=== PATIENT | female | born 1940 | race Caucasian/White ===

== ENCOUNTER 2019-02-18 10:41 | Inpatient (IN) ==
[2019-02-18] MEDS ORDERED: Isovue-370 500 ML BOTTLE IVP ONE (10:44)
--- NOTE | 2019-02-18 11:05 | Emergency Department Note ---
Disposition Clinical Impression: Bilateral pulmonary embolism, Breast mass, right Pulmonary embolism Qualifiers: Pulmonary embolism type: other Chronicity: acute Acute cor pulmonale presence: without acute cor pulmonale Qualified Code(s): I26.99 - Other pulmonary embolism without acute cor pulmonale Disposition: Admitted As Inpatient Condition: Fair Referrals: Kaitlynn Piña DO [Primary Care Provider] - Forms: ED Satisfaction Letter Time of Disposition: 13:46 SOB HPI - General Chief Complaint: ED Shortness of Breath/Dyspnea Stated Complaint: SOB Time Seen by Provider: 02/18/19 10:42 Source: patient, EMS Limitations: no limitations Nursing Notes Reviewed: Yes Vital Signs Reviewed: Yes - History of Present Illness Mrs. Gutiérrez is a 78yo female with a pastmed hx of HTN, Mrs. Gutiérrez is a 78yo female with a past medical hx of HTN and PE-3 years ago not currently on blood thinners presents with exertional shortness of breath since Tuesday. Patient states that she has a pulse ox at home, which has shown increased HR and decrease O2 saturation with ambulation. Patient seen at urgent care this morning, where they performed at EKG and sent her here for concern of PE vs. CHF. Patient reports no chest pain, changes in medications or nausea/vomiting. No recent surgeries, long car rides, exogenous hormones or hx of cancer. Patient does admit to remaining immobile most days as she "doesn't have the energy anymore." - Related Data Home Medications Medication Instructions Recorded Confirmed Celecoxib [Celebrex] 200 mg PO DAILY 02/18/19 02/18/19 Lisinopril/Hydrochlorothiazide 1 each PO BID 02/18/19 02/18/19 [Lisinopril-Hctz 10-12.5 mg Tab] Allergies Allergy/AdvReac Type Severity Reaction Status Date / Time naproxen [From Naprosyn] Allergy Rash Verified 01/02/16 14:46 All systems ED: reviewed and negative except as stated. Review of Systems: As Per HPI Constitutional: Denies: fever, chills Cardiovascular: Reports: dyspnea on exertion. Denies: chest pain, palpitations Respiratory: Reports: dyspnea. Denies: cough, wheezes Gastrointestinal: Reports: diarrhea. Denies: abdominal pain, nausea, vomiting Genitourinary: Denies: urgency, dysuria Musculoskeletal: Denies: back pain Integumentary: Denies: rash Neurological: Denies: headache, weakness, numbness Endocrine: Denies: fatigue Past Medical History - Past Medical History Medical history: Reports: arthritis, hypertension, pulmonary embolus Surgical history: Reports: hip replacement Psychiatric history: Reports: anxiety, panic disorder HEEL STAINER history: Reports: no HEEL STAINER history - Social History Smoking Status: Former smoker Smokeless Tobacco Status: No Alcohol use: Reports: rarely Drug use: Reports: none Physical Exam - General Limitations: no limitations General appearance: alert, in no apparent distress - Head Head exam: atraumatic, normocephalic - Eye Eye exam: Present: PERRL - ENT ENT exam: mucous membranes moist - Neck Neck exam: Present: trachea midline - Respiratory Respiratory exam: Present: normal lung sounds bilaterally. Absent: respiratory distress, wheezes - Cardiovascular Cardiovascular exam: Present: regular rate, normal rhythm - Abdominal Exam Abdominal exam: Present: soft, Non-Tender. Absent: distention, guarding, rebound - Extremities Exam Extremities exam: Present: normal inspection, full ROM. Absent: tenderness, pedal edema - Back Exam Back exam: Present: normal inspection, full ROM. Absent: tenderness - Neurological Exam Neurological exam: Present: alert, oriented X3 - Psychiatric Psychiatric exam: Present: normal affect, normal mood - Skin Skin exam: Present: warm, dry, intact, normal color Course - Consultations Consultation #1: I spoke with Dr. Tucker at 1402, states that as the patient is symptomatic with shortness of breath and bloody breathing requiring 2 L currently at 90 798% oxygen saturation, he does feel the patient is appropriate for admission at this point in time, would like her observed for a total of 24 hours. He will be arranging for outpatient follow-up after this 24 hours observation. He states to go ahead and start Xarelto medication if the patient is agreeable. Dr. Tucker states that he does not need to consult in the hospital as he is a 30 establish ed outpatient follow-up for the patient upon discharge. Time: 14:03 Vital Signs Temperature 98.4 F 02/18/19 10:47 Pulse Rate 91 02/18/19 10:47 Respiratory Rate 14 02/18/19 10:47 Blood Pressure 162/85 02/18/19 10:47 O2 Sat by Pulse Oximetry 97 02/18/19 10:47 Temperature 98.4 F 02/18/19 10:47 Pulse Rate 74 02/18/19 14:13 Respiratory Rate 18 02/18/19 14:13 Blood Pressure 141/71 02/18/19 14:13 O2 Sat by Pulse Oximetry 99 02/18/19 14:13 Oxygen Delivery Oxygen Delivery Nasal Cannula Shortness of Breath/Dyspnea - [facility] Narrative Medical decision making narrative: Patient is a 78-year-old female coming in with shortness of breath and difficulty breathing. Patient with known history of high blood pressure cholesterol and PE in the past, this apparently 3 years ago at that point in time she was on Xarelto regimen since stopped after 6 months of duration of treatment. Patient came in in no acute distress, no tachycardia, she was placed on 2 L nasal cannula secondary to mild hypoxia, she is currently satting at 97- 99% in room air. Patient is quite symptomatic she states with the past few days of significant soreness of breath and difficulty breathing. Sent in by her PCP for concern for PE. She denies any exogenous causes secondary to OCPs, estrogen replacement, leg swelling no history of DVT. CTA was performed as well as laboratory work including CBC, BMP, troponin and BNP. CTA does show bilateral pulmonary embolism without saddle emboli. Patient has no right heart strain on CT. Troponin and BNP are within normal limits. Vital signs otherwise been stable. Patient was placed on heparin treatment. I did speak with the on-call [facility] PHYSICIAN, Dr. Tucker requested the patient be admitted for symptomatic pulmonary embolism, if patient was a symptomatically, the patient would be a candidate for discharge on into coagulation medication, however as the patient is having symptoms at this time, he does request the patient be admitted for 24 hour observation and being placed on Xarelto. He will be seeing the patient outpatient, he has established this for her after 24 hour observation. Patient will be admitted to the hospitalist service. - Differential Diagnosis Likely: acute exacerbation of chronic obstructive airways disease, congestive heart failure, pneumonia, pulmonary embolism, arrhythmia - Medical Records Medical records reviewed: Yes I reviewed the patient's medical records. - Lab Data Lab results reviewed: Yes I reviewed the patient's lab results. Result diagrams: 02/18/19 13:30 02/18/19 11:18 Lab Results 02/18/19 02/18/19 02/18/19 Range/Units 11:01 11:18 11:18 WBC 8.2 (4.3-11.1) K/mcL RBC 4.92 (3.82-4.97) M/mcL Hgb 14.7 (11.5-15.4) g/dL Hct 45.8 H (35.3-44.9) % MCV 93.1 (83.0-100.0) fL MCH 29.9 (28.0-33.3) pg MCHC 32.1 (31.6-35.5) g/dL RDW 14.5 (11.5-14.5) % Plt Count 258 (140-400) K/mcL MPV 9.4 (9.4-12.4) fL Immature Gran % 0.6 (0-4) % Seg Neutrophils % 75.1 % Lymphocytes % 15.8 % Monocytes % 6.7 % Eosinophils % 1.2 % Basophils % 0.6 % Neutrophils # 6.2 (1.6-8.9) K/mcL Lymphocytes # 1.3 (0.6-4.6) K/mcL Monocytes # 0.6 (0.0-1.3) K/mcL Eosinophils # 0.1 (0.0-0.6) K/mcL Basophils # 0.1 (0.0-0.2) K/mcL PT 12.7 H (9.4-12.1) Seconds INR 1.1 APTT 38.5 H (26.0-36.0) Seconds Heparin Anti-Xa, Unfract (0.30-0.70) IU/mL Sodium (136-145) mEq/L Potassium (3.5-5.1) mEq/L Chloride (98-107) mEq/L Carbon Dioxide (23-29) mEq/L BUN (8-23) mg/dL Creatinine (0.60-1.20) mg/dL Est GFR ( Amer) (> 60) Est GFR (Non-Af Amer) (> 60) BUN/Creatinine Ratio (6-26) Glucose (70-105) mg/dL Calculated Osmolality (280-300) Calcium (8.6-10.3) mg/dL Troponin I (< 0.04) ng/mL B-Natriuretic Peptide (Less than 100) pg/mL Urine Color Yellow (Yellow) Urine Clarity Clear (Clear) Urine pH 6.5 (5.0-8.0) pH Units Ur Specific [place] 1.010 (1.010-1.025) Urine Protein Negative (Neg-Trace) mg/dL Urine Glucose (UA) Normal (Normal) mg/dL Urine Ketones Negative (Negative) mg/dL Urine Blood Negative (Negative) Urine Nitrite Negative (Negative) Urine Bilirubin Negative (Negative) Urine Urobilinogen Normal (Normal) mg/dL Ur Leukocyte Esterase Small H (Negative) Urine Microscopic RBC 0-3 (0-3) per hpf Urine Microscopic WBC 5-15 H (0-3) per hpf Ur Squamous Epith Cells Moderate H (None-Few) per lpf Urine Bacteria None Seen (None-Few) per hpf Hyaline Casts None Seen (None-Few) per lpf Ur Culture Indicated? YES A (NO) 02/18/19 02/18/19 02/18/19 Range/Units 11:18 11:18 13:30 WBC 8.3 (4.3-11.1) K/mcL RBC 4.66 (3.82-4.97) M/mcL Hgb 13.8 (11.5-15.4) g/dL Hct 41.9 (35.3-44.9) % MCV 89.9 (83.0-100.0) fL MCH 29.6 (28.0-33.3) pg MCHC 32.9 (31.6-35.5) g/dL RDW 14.6 H (11.5-14.5) % Plt Count 254 (140-400) K/mcL MPV 9.3 L (9.4-12.4) fL Immature Gran % (0-4) % Seg Neutrophils % % Lymphocytes % % Monocytes % % Eosinophils % % Basophils % % Neutrophils # (1.6-8.9) K/mcL Lymphocytes # (0.6-4.6) K/mcL Monocytes # (0.0-1.3) K/mcL Eosinophils # (0.0-0.6) K/mcL Basophils # (0.0-0.2) K/mcL PT (9.4-12.1) Seconds INR APTT (26.0-36.0) Seconds Heparin Anti-Xa, Unfract (0.30-0.70) IU/mL Sodium 143 (136-145) mEq/L Potassium 4.2 (3.5-5.1) mEq/L Chloride 105 (98-107) mEq/L Carbon Dioxide 27 (23-29) mEq/L BUN 17 (8-23) mg/dL Creatinine 0.99 (0.60-1.20) mg/dL Est GFR ( Amer) > 60 (> 60) Est GFR (Non-Af Amer) 55 L (> 60) BUN/Creatinine Ratio 17 (6-26) Glucose 125 H (70-105) mg/dL Calculated Osmolality 299 (280-300) Calcium 10.1 (8.6-10.3) mg/dL Troponin I < 0.03 (< 0.04) ng/mL B-Natriuretic Peptide 62 (Less than 100) pg/mL Urine Color (Yellow) Urine Clarity (Clear) Urine pH (5.0-8.0) pH Units Ur Specific [place] (1.010-1.025) Urine Protein (Neg-Trace) mg/dL Urine Glucose (UA) (Normal) mg/dL Urine Ketones (Negative) mg/dL Urine Blood (Negative) Urine Nitrite (Negative) Urine Bilirubin (Negative) Urine Urobilinogen (Normal) mg/dL Ur Leukocyte Esterase (Negative) Urine Microscopic RBC (0-3) per hpf Urine Microscopic WBC (0-3) per hpf Ur Squamous Epith Cells (None-Few) per lpf Urine Bacteria (None-Few) per hpf Hyaline Casts (None-Few) per lpf Ur Culture Indicated? (NO) 02/18/19 Range/Units 13:30 WBC (4.3-11.1) K/mcL RBC (3.82-4.97) M/mcL Hgb (11.5-15.4) g/dL Hct (35.3-44.9) % MCV (83.0-100.0) fL MCH (28.0-33.3) pg MCHC (31.6-35.5) g/dL RDW (11.5-14.5) % Plt Count (140-400) K/mcL MPV (9.4-12.4) fL Immature Gran % (0-4) % Seg Neutrophils % % Lymphocytes % % Monocytes % % Eosinophils % % Basophils % % Neutrophils # (1.6-8.9) K/mcL Lymphocytes # (0.6-4.6) K/mcL Monocytes # (0.0-1.3) K/mcL Eosinophils # (0.0-0.6) K/mcL Basophils # (0.0-0.2) K/mcL PT 12.7 H (9.4-12.1) Seconds INR 1.1 APTT (26.0-36.0) Seconds Heparin Anti-Xa, Unfract 0.02 L (0.30-0.70) IU/mL Sodium (136-145) mEq/L Potassium (3.5-5.1) mEq/L Chloride (98-107) mEq/L Carbon Dioxide (23-29) mEq/L BUN (8-23) mg/dL Creatinine (0.60-1.20) mg/dL Est GFR ( Amer) (> 60) Est GFR (Non-Af Amer) (> 60) BUN/Creatinine Ratio (6-26) Glucose (70-105) mg/dL Calculated Osmolality (280-300) Calcium (8.6-10.3) mg/dL Troponin I (< 0.04) ng/mL B-Natriuretic Peptide (Less than 100) pg/mL Urine Color (Yellow) Urine Clarity (Clear) Urine pH (5.0-8.0) pH Units Ur Specific [place] (1.010-1.025) Urine Protein (Neg-Trace) mg/dL Urine Glucose (UA) (Normal) mg/dL Urine Ketones (Negative) mg/dL Urine Blood (Negative) Urine Nitrite (Negative) Urine Bilirubin (Negative) Urine Urobilinogen (Normal) mg/dL Ur Leukocyte Esterase (Negative) Urine Microscopic RBC (0-3) per hpf Urine Microscopic WBC (0-3) per hpf Ur Squamous Epith Cells (None-Few) per lpf Urine Bacteria (None-Few) per hpf Hyaline Casts (None-Few) per lpf Ur Culture Indicated? (NO) - Radiology Data Radiology results reviewed: Yes I reviewed the patient's radiology results. Chest X-Ray 02/18/19 11:49 IMPRESSION: No acute process. D/ / José Luis Renteria MD / José Luis Renteria MD Interpreting Provider: José Luis Renteria MD Chest CTA 02/18/19 12:24 IMPRESSION: Acute bilateral pulmonary emboli. No evidence for right ventricular heart strain. Possible retroareolar mass in the right breast. Correlation with mammography suggested Findings were discussed with Joyce Bingham RN at 12:30 pm on 02/18/2019. D/ / José Luis Renteria MD / José Luis Renteria MD Interpreting Provider: José Luis Renteria MD
[2019-02-18 11:12] LABS: Bilirubin,Urine Negative (Negative); Blood,Urine Negative (Negative); Clarity,Urine Clear (Clear); Color,Urine Yellow (Yellow); Glucose,Urine (UA) Normal (Normal); Ketones,Urine Negative (Negative); Leukocyte Esterase,Urine Small (Negative); Nitrite,Urine Negative (Negative); PH,Urine 6.5 pH Units (5.0-8.0); Protein,Urine Negative (Neg-Trace); Urobilinogen,Urine Normal (Normal)
[2019-02-18 11:15] LABS: Bacteria,Urine None Seen per hpf (None-Few); Hyaline Casts,Urine None Seen per lpf (None-Few); RBC,Urine 0-3 per hpf (0-3); Squamous Epithelial Cell,Urine Moderate per lpf (None-Few)
[2019-02-18 11:30] LABS: Basophils % 0.6 %; Eosinophils % 1.2 %; Hematocrit 45.8 % (35.3-44.9); Hemoglobin 14.7 g/dL (11.5-15.4); Immature Granulocytes % 0.6 % (0-4); Lymphocytes % 15.8 %; Mean Corpuscular HGB Conc 32.1 g/dL (31.6-35.5); Mean Corpuscular Hemoglobin 29.9 pg (28.0-33.3); Mean Corpuscular Volume 93.1 fL (83.0-100.0); Mean Platelet Volume 9.4 fL (9.4-12.4); Monocytes % 6.7 %; Platelet Count 258 K/mcL (140-400); Red Blood Count 4.92 M/mcL (3.82-4.97); Red Cell Distribution Width 14.5 % (11.5-14.5); Segmented Neutrophils % 75.1 %; White Blood Count 8.2 K/mcL (4.3-11.1)
[2019-02-18 11:31] LABS: Basophils # 0.1 K/mcL (0.0-0.2); Eosinophils # 0.1 K/mcL (0.0-0.6); Lymphocytes # 1.3 K/mcL (0.6-4.6); Monocytes # 0.6 K/mcL (0.0-1.3); Neutrophils # 6.2 K/mcL (1.6-8.9)
[2019-02-18 11:37] LABS: INR 1.1; Prothrombin Time 12.7 Seconds (9.4-12.1)
[2019-02-18 11:40] LABS: Activated Partial Thrombo Time 38.5 Seconds (26.0-36.0)
[2019-02-18 11:53] LABS: BUN/Creatinine Ratio 17 (6-26); Blood Urea Nitrogen 17 mg/dL (8-23); Calcium 10.1 mg/dL (8.6-10.3); Carbon Dioxide 27 mEq/L (23-29); Chloride 105 mEq/L (98-107); Glucose 125 mg/dL (70-105); Osmolality,Calculated 299 (280-300); Potassium 4.2 mEq/L (3.5-5.1); Sodium 143 mEq/L (136-145); Troponin I < 0.03 ng/mL (< 0.04); eGFR For African Americans > 60 (> 60); eGFR For Non-African Americans 55 (> 60)
[2019-02-18] MEDS ORDERED: *HR* Heparin 5,000 UNIT/ML VIAL IVP ONE (13:07)
[2019-02-18] MEDS ORDERED: *HR* Heparin 5,000 UNIT/ML VIAL IVP PRN ×2 (13:07)
[2019-02-18 13:46] LABS: Hematocrit 41.9 % (35.3-44.9); Hemoglobin 13.8 g/dL (11.5-15.4); Mean Corpuscular HGB Conc 32.9 g/dL (31.6-35.5); Mean Corpuscular Hemoglobin 29.6 pg (28.0-33.3); Mean Corpuscular Volume 89.9 fL (83.0-100.0); Mean Platelet Volume 9.3 fL (9.4-12.4); Platelet Count 254 K/mcL (140-400); Red Blood Count 4.66 M/mcL (3.82-4.97); Red Cell Distribution Width 14.6 % (11.5-14.5); White Blood Count 8.3 K/mcL (4.3-11.1)
--- NOTE | 2019-02-18 13:50 | Emergency Department Note ---
Disposition Clinical Impression: Bilateral pulmonary embolism, Breast mass, right Disposition: Admitted As Inpatient Condition: Good Forms: ED Satisfaction Letter Time of Disposition: 13:51 General Adult HPI - General Chief complaint: ED Shortness of Breath/Dyspnea Stated complaint: SOB Time Seen by Provider: 02/18/19 10:42 Source: patient, EMS Limitations: no limitations - History of Present Illness Pain Scale: 0 - Related Data Home Medications Medication Instructions Recorded Confirmed Celecoxib [Celebrex] 200 mg PO DAILY 02/18/19 02/18/19 Lisinopril/Hydrochlorothiazide 1 each PO BID 02/18/19 02/18/19 [Lisinopril-Hctz 10-12.5 mg Tab] Allergies Allergy/AdvReac Type Severity Reaction Status Date / Time naproxen [From Naprosyn] Allergy Rash Verified 01/02/16 14:46 Constitutional: Denies: fever, chills Cardiovascular: Reports: dyspnea on exertion. Denies: chest pain, palpitations Respiratory: Reports: dyspnea. Denies: cough, wheezes Gastrointestinal: Reports: diarrhea (2 episodes last night without blood). Denies: abdominal pain, nausea, vomiting Genitourinary: Denies: urgency, dysuria Neurological: Denies: headache, weakness, numbness Past Medical History - Past Medical History Medical history: Reports: arthritis, hypertension, pulmonary embolus Surgical history: Reports: hip replacement Psychiatric history: Reports: anxiety, panic disorder CAPACITOR TESTER history: Reports: no CAPACITOR TESTER history - Social History Smoking Status: Former smoker Smokeless Tobacco Status: No Alcohol use: Reports: rarely Drug use: Reports: none Physical Exam - General Limitations: no limitations General appearance: alert, in no apparent distress Course Vital Signs Temperature 98.4 F 02/18/19 10:47 Pulse Rate 91 02/18/19 10:47 Respiratory Rate 14 02/18/19 10:47 Blood Pressure 162/85 02/18/19 10:47 O2 Sat by Pulse Oximetry 97 02/18/19 10:47 Temperature 98.4 F 02/18/19 10:47 Pulse Rate 81 02/18/19 11:21 Respiratory Rate 98 02/18/19 11:21 Blood Pressure 164/75 02/18/19 11:21 O2 Sat by Pulse Oximetry 99 02/18/19 10:47 Oxygen Delivery Oxygen Delivery Nasal Cannula Medical Decision Making - Lab Data Result diagrams: 02/18/19 11:18 02/18/19 11:18 Lab Results 02/18/19 02/18/19 02/18/19 Range/Units 11:01 11:18 11:18 WBC 8.2 (4.3-11.1) K/mcL RBC 4.92 (3.82-4.97) M/mcL Hgb 14.7 (11.5-15.4) g/dL Hct 45.8 H (35.3-44.9) % MCV 93.1 (83.0-100.0) fL MCH 29.9 (28.0-33.3) pg MCHC 32.1 (31.6-35.5) g/dL RDW 14.5 (11.5-14.5) % Plt Count 258 (140-400) K/mcL MPV 9.4 (9.4-12.4) fL Immature Gran % 0.6 (0-4) % Seg Neutrophils % 75.1 % Lymphocytes % 15.8 % Monocytes % 6.7 % Eosinophils % 1.2 % Basophils % 0.6 % Neutrophils # 6.2 (1.6-8.9) K/mcL Lymphocytes # 1.3 (0.6-4.6) K/mcL Monocytes # 0.6 (0.0-1.3) K/mcL Eosinophils # 0.1 (0.0-0.6) K/mcL Basophils # 0.1 (0.0-0.2) K/mcL PT 12.7 H (9.4-12.1) Seconds INR 1.1 APTT 38.5 H (26.0-36.0) Seconds Sodium (136-145) mEq/L Potassium (3.5-5.1) mEq/L Chloride (98-107) mEq/L Carbon Dioxide (23-29) mEq/L BUN (8-23) mg/dL Creatinine (0.60-1.20) mg/dL Est GFR ( Amer) (> 60) Est GFR (Non-Af Amer) (> 60) BUN/Creatinine Ratio (6-26) Glucose (70-105) mg/dL Calculated Osmolality (280-300) Calcium (8.6-10.3) mg/dL Troponin I (< 0.04) ng/mL B-Natriuretic Peptide (Less than 100) pg/mL Urine Color Yellow (Yellow) Urine Clarity Clear (Clear) Urine pH 6.5 (5.0-8.0) pH Units Ur Specific [place] 1.010 (1.010-1.025) Urine Protein Negative (Neg-Trace) mg/dL Urine Glucose (UA) Normal (Normal) mg/dL Urine Ketones Negative (Negative) mg/dL Urine Blood Negative (Negative) Urine Nitrite Negative (Negative) Urine Bilirubin Negative (Negative) Urine Urobilinogen Normal (Normal) mg/dL Ur Leukocyte Esterase Small H (Negative) Urine Microscopic RBC 0-3 (0-3) per hpf Urine Microscopic WBC 5-15 H (0-3) per hpf Ur Squamous Epith Cells Moderate H (None-Few) per lpf Urine Bacteria None Seen (None-Few) per hpf Hyaline Casts None Seen (None-Few) per lpf Ur Culture Indicated? YES A (NO) 02/18/19 02/18/19 Range/Units 11:18 11:18 WBC (4.3-11.1) K/mcL RBC (3.82-4.97) M/mcL Hgb (11.5-15.4) g/dL Hct (35.3-44.9) % MCV (83.0-100.0) fL MCH (28.0-33.3) pg MCHC (31.6-35.5) g/dL RDW (11.5-14.5) % Plt Count (140-400) K/mcL MPV (9.4-12.4) fL Immature Gran % (0-4) % Seg Neutrophils % % Lymphocytes % % Monocytes % % Eosinophils % % Basophils % % Neutrophils # (1.6-8.9) K/mcL Lymphocytes # (0.6-4.6) K/mcL Monocytes # (0.0-1.3) K/mcL Eosinophils # (0.0-0.6) K/mcL Basophils # (0.0-0.2) K/mcL PT (9.4-12.1) Seconds INR APTT (26.0-36.0) Seconds Sodium 143 (136-145) mEq/L Potassium 4.2 (3.5-5.1) mEq/L Chloride 105 (98-107) mEq/L Carbon Dioxide 27 (23-29) mEq/L BUN 17 (8-23) mg/dL Creatinine 0.99 (0.60-1.20) mg/dL Est GFR ( Amer) > 60 (> 60) Est GFR (Non-Af Amer) 55 L (> 60) BUN/Creatinine Ratio 17 (6-26) Glucose 125 H (70-105) mg/dL Calculated Osmolality 299 (280-300) Calcium 10.1 (8.6-10.3) mg/dL Troponin I < 0.03 (< 0.04) ng/mL B-Natriuretic Peptide 62 (Less than 100) pg/mL Urine Color (Yellow) Urine Clarity (Clear) Urine pH (5.0-8.0) pH Units Ur Specific [place] (1.010-1.025) Urine Protein (Neg-Trace) mg/dL Urine Glucose (UA) (Normal) mg/dL Urine Ketones (Negative) mg/dL Urine Blood (Negative) Urine Nitrite (Negative) Urine Bilirubin (Negative) Urine Urobilinogen (Normal) mg/dL Ur Leukocyte Esterase (Negative) Urine Microscopic RBC (0-3) per hpf Urine Microscopic WBC (0-3) per hpf Ur Squamous Epith Cells (None-Few) per lpf Urine Bacteria (None-Few) per hpf Hyaline Casts (None-Few) per lpf Ur Culture Indicated? (NO) Attestation Statement - Attestation Attestation: I reviewed the residents documentation and agree with the residents assessment and plan of care. I have personally had face to face time with the patient. (Brief History, Brief Exam, and MDM) I personally supervised and was present for the busch/critical portions of the following procedures completed by the resident: EKG 78 year old female presentse to the ED room urgent care which presents for concerns for PE as she has a previous history of PEs. It appears on CTA chest she has bilateral PEs in addition to an retroareolar mass on the right breast. WE will start heparin therapy and admit to medicine.
[2019-02-18 13:53] LABS: Heparin anti-factor XA UFH 0.02 IU/mL (0.30-0.70)
[2019-02-18 13:54] LABS: INR 1.1; Prothrombin Time 12.7 Seconds (9.4-12.1)
[2019-02-18] MEDS: Heparin 25,000 UNIT/250 ML D5W 25,000 UNIT/250 ML IV.SOLN IVC SCH (14:15)
[2019-02-18] MEDS ORDERED: Naloxone 0.4 MG/ML INJ IVP PRN (15:52)
[2019-02-18] MEDS ORDERED: Ondansetron 4 MG/2 ML VIAL IVP PRN (15:52)
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
[2019-02-18] MEDS ORDERED: Acetaminophen 325 MG TABLET PO PRN (16:44)
[2019-02-18] MEDS ORDERED: traMADol 50 MG TABLET PO PRN (16:44)
[2019-02-18] MEDS: Nystatin POWDER 30 GM BOTTLE TP SCH (22:56)
[2019-02-19 02:28] LABS: Basophils # 0.1 K/mcL (0.0-0.2); Basophils % 1.4 %; Eosinophils # 0.3 K/mcL (0.0-0.6); Eosinophils % 3.3 %; Hematocrit 42.8 % (35.3-44.9); Hemoglobin 13.7 g/dL (11.5-15.4); Immature Granulocytes % 0.5 % (0-4); Lymphocytes # 1.9 K/mcL (0.6-4.6); Lymphocytes % 23.7 %; Mean Corpuscular Hemoglobin 29.5 pg (28.0-33.3); Mean Platelet Volume 9.8 fL (9.4-12.4); Monocytes # 0.7 K/mcL (0.0-1.3); Monocytes % 8.7 %; Neutrophils # 5.1 K/mcL (1.6-8.9); Platelet Count 263 K/mcL (140-400); Red Blood Count 4.65 M/mcL (3.82-4.97); Red Cell Distribution Width 14.8 % (11.5-14.5); Segmented Neutrophils % 62.4 %; White Blood Count 8.1 K/mcL (4.3-11.1)
[2019-02-19 02:36] LABS: INR 1.1
[2019-02-19 02:47] LABS: Calcium 9.5 mg/dL (8.6-10.3); Magnesium 1.7 mg/dL (1.6-2.6); Potassium 3.6 mEq/L (3.5-5.1)
[2019-02-19] MEDS: cefTRIAXone 1,000 MG in 0.9 % Sodium Chloride Mini Bag 100 ML IVPB SCH (08:10)
[2019-02-19] MEDS: Nystatin POWDER 30 GM BOTTLE TP SCH ×3 (08:12→20:46)
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
[2019-02-19] MEDS: Heparin 25,000 UNIT/250 ML D5W 25,000 UNIT/250 ML IV.SOLN IVC SCH (12:48)
--- NOTE | 2019-02-19 13:18 | Electrocardiograph Report ---
[address] [place] [address] Test Date: 2019-02-18 Pat Name: Osiris Gutiérrez Department: EXAM9 Room: 2NE16 Gender: F [employer]: : 1940 Requested By: Josselyn Bowman Order Number: [id number] Reading MD: Rafi Falcon Measurements Intervals [place] Rate: 83 P: -15 [place]: 284 QRS: 7 QRSD: 90 T: 42 QT: 364 QTc: 428 Interpretive Statements Sinus arrhythmia Ventricular premature complex Prolonged [place] interval Anterior infarct, old Electronically Signed On 02-19-2019 13:16:30 EDT by Rafi Falcon
[2019-02-19] MEDS ORDERED: *HR* Warfarin 5 MG TABLET PO ONE (18:00)
[2019-02-19] MEDS ORDERED: Warfarin perPT PO PRN (18:00)
[2019-02-20 00:51] LABS: Basophils # 0.1 K/mcL (0.0-0.2); Basophils % 0.9 %; Eosinophils # 0.4 K/mcL (0.0-0.6); Eosinophils % 4.3 %; Hematocrit 41.2 % (35.3-44.9); Hemoglobin 13.1 g/dL (11.5-15.4); Immature Granulocytes % 0.4 % (0-4); Lymphocytes # 2.6 K/mcL (0.6-4.6); Lymphocytes % 26.8 %; Mean Corpuscular HGB Conc 31.8 g/dL (31.6-35.5); Mean Corpuscular Hemoglobin 29.7 pg (28.0-33.3); Mean Corpuscular Volume 93.4 fL (83.0-100.0); Mean Platelet Volume 9.3 fL (9.4-12.4); Monocytes # 0.7 K/mcL (0.0-1.3); Monocytes % 7.4 %; Neutrophils # 5.8 K/mcL (1.6-8.9); Platelet Count 245 K/mcL (140-400); Red Blood Count 4.41 M/mcL (3.82-4.97); Red Cell Distribution Width 14.7 % (11.5-14.5); Segmented Neutrophils % 60.2 %; White Blood Count 9.7 K/mcL (4.3-11.1)
[2019-02-20 01:01] LABS: INR 1.2; Prothrombin Time 13.2 Seconds (9.4-12.1)
[2019-02-20 01:09] LABS: BUN/Creatinine Ratio 26 (6-26); Blood Urea Nitrogen 25 mg/dL (8-23); Carbon Dioxide 24 mEq/L (23-29); Chloride 105 mEq/L (98-107); Glucose 114 mg/dL (70-105); Magnesium 1.8 mg/dL (1.6-2.6); Osmolality,Calculated 295 (280-300); Potassium 3.6 mEq/L (3.5-5.1); Sodium 140 mEq/L (136-145); eGFR For African Americans > 60 (> 60); eGFR For Non-African Americans 56 (> 60)
[2019-02-20] MEDS: Heparin 25,000 UNIT/250 ML D5W 25,000 UNIT/250 ML IV.SOLN IVC SCH (04:07)
[2019-02-20] MEDS: cefTRIAXone 1,000 MG in 0.9 % Sodium Chloride Mini Bag 100 ML IVPB SCH (07:46)
[2019-02-20] MEDS: Nystatin POWDER 30 GM BOTTLE TP SCH ×3 (10:01→20:22)
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
[2019-02-20] MEDS ORDERED: *HR* Warfarin 2.5 MG TABLET PO ONE (18:00)
[2019-02-21] MEDS: Heparin 25,000 UNIT/250 ML D5W 25,000 UNIT/250 ML IV.SOLN IVC SCH ×2 (01:20→22:01)
[2019-02-21 02:30] LABS: Hemoglobin 12.9 g/dL (11.5-15.4); Mean Corpuscular HGB Conc 31.5 g/dL (31.6-35.5); Mean Corpuscular Hemoglobin 29.5 pg (28.0-33.3); Mean Corpuscular Volume 93.8 fL (83.0-100.0); Mean Platelet Volume 9.3 fL (9.4-12.4); Platelet Count 244 K/mcL (140-400); Red Blood Count 4.37 M/mcL (3.82-4.97); Red Cell Distribution Width 14.4 % (11.5-14.5); White Blood Count 8.2 K/mcL (4.3-11.1)
[2019-02-21 02:50] LABS: Calcium 8.8 mg/dL (8.6-10.3); Potassium 3.9 mEq/L (3.5-5.1)
[2019-02-21 03:49] LABS: INR 1.1; Prothrombin Time 12.6 Seconds (9.4-12.1)
[2019-02-21] MEDS: cefTRIAXone 1,000 MG in 0.9 % Sodium Chloride Mini Bag 100 ML IVPB SCH (08:56)
--- NOTE | 2019-02-21 12:36 | Internal Med Progress Note ---
Hospitalist Progress Note - Encounter Date of Encounter: 02/21/19 Time of Encounter: 09:45 - Subjective Interval History: Patient was seen at bedside. Reports improvement in the shortness of breath. Currently saturating in the high 90s on 2-3 L of oxygen. Had a bowel movement in the morning today. Denies any fever, chills, rigors, dysuria. Denies chest pain. She is feeling overall better than yesterday. No acute events overnight. INR continues to be subtherapeutic. - Exam Vitals: Temp Pulse Resp BP Pulse Ox 97.5 F L 75 17 104/61 99 02/21/19 08:21 02/21/19 08:21 02/21/19 08:21 02/21/19 08:21 02/21/19 08:21 Exam: GEN: Morbidly obese female NAD, A&O x 3, Pleasant and conversant, young male family friend at the bedside SKIN: [place] warm acyanotic not jaundice HEART: RRR, no murmurs LUNGS: CTA no wheeze or crackles, overall non labored ABDOMEN; Soft, non tender or distended, BS x 4 normactive EXT: No LE edema, Pedal pulses 1+, radial pulses 2+ PSYCH: Mood and affect is appropriate - Assessment and Plan (1) Bilateral pulmonary embolism Current Visit: Yes Status: Acute Assessment and Plan: Recurrent bilateral pulmonary embolism, previous episode was 3 years back. Etiology is unclear. Hypercoagulability workup has been ordered. Also has a concerning mass in the breast on the CT scan. At this point, the plan is for lifelong anticoagulation. Currently on a heparin drip, is being switched to Coumadin with INR subtherapeutic at 1.2. Continuing heparin drip and Coumadin. Coumadin dosing as per pharmacy. (2) DVT of lower extremity, bilateral Current Visit: Yes Status: Acute Assessment and Plan: Bilateral lower extremity venous duplex appears to be positive for acute DVT in the right distal SFV and PTV, left distal SFV, popliteal and PTV. Positive for acute SVT in the right LSV. Management with anticoagulation. (3) Breast mass, right Current Visit: Yes Status: Acute Assessment and Plan: Patient is to get diagnostic mammogram at the start of March. Patient is strongly encouraged to follow up. Consideirng PE, concerns fir the breast CA. (4) DDD (degenerative disc disease), cervical Current Visit: Yes Status: Acute Assessment and Plan: chronic with left upper extremity paresthesia per patient. She is on Celebrex she was told she cannot have Celebrex anymore given her anticoagulation therapy with increaed risk of bleeding. (5) DVT prophylaxis Current Visit: Yes Status: Acute Assessment and Plan: Patient on heparin drip for PE/DVT (6) Hypertension Current Visit: Yes Status: Acute Assessment and Plan: BP on lower side, also had IVELISSE, Will hold antihypertnesive meds (7) Morbid obesity with BMI of 45.0-49.9, adult Current Visit: Yes Status: Chronic Assessment and Plan: Encourage lifestyle changes diet and exercise (8) Elevated serum creatinine Current Visit: Yes Status: Acute Assessment and Plan: Cr increased to 1.36 from baseline of 1.0-1.1. Etiology is unclear. We will hold blood pressure medication considering low blood pressure. Repeat BMP tomorrow. (9) UTI (urinary tract infection) Current Visit: Yes Status: Acute Assessment and Plan: Urine cultures positive for Escherichia coli. Currently on ceftriaxone. Stop ceftriaxone, started on Augmentin, total of 5 days. - Time Spent with Patient Total time spent is greater than 50% in coordination of care (as documented) at patient's floor/unit and/or counseling patient: Internal Medicine: Result - Labs CBC & Chem 7: 02/21/19 02:13 02/21/19 02:13 Labs: Short CBC 02/21/19 Range/Units 02:13 WBC 8.2 (4.3-11.1) K/mcL Hgb 12.9 (11.5-15.4) g/dL Hct 41.0 (35.3-44.9) % Plt Count 244 (140-400) K/mcL BMP 02/21/19 02:13 Sodium 138 Potassium 3.9 Chloride 103 Carbon Dioxide 25 BUN 30 H Creatinine 1.36 H Glucose 122 H Calcium 8.8 - ABG Interpretation ABG results: PT/INR, D-dimer PT 12.6 Seconds (9.4-12.1) H 02/21/19 02:13 Consult Discharge Plan - Plan Referrals: Kaitlynn Piña DO [Primary Care Provider] - (2) DVT of lower extremity, bilateral Qualifiers: Affected thrombotic vein of extremity: femoral Chronicity: acute Qualified Code(s): I82.413 - Acute embolism and thrombosis of femoral vein, bilateral (6) Hypertension Qualifiers: Hypertension type: essential hypertension Qualified Code(s): I10 - Essential (primary) hypertension (9) UTI (urinary tract infection) Qualifiers: Urinary tract infection type: site unspecified Hematuria presence: without hematuria Qualified Code(s): N39.0 - Urinary tract infection, site not specified
[2019-02-21] MEDS: Nystatin POWDER 30 GM BOTTLE TP SCH ×3 (14:20→22:01)
[2019-02-21] MEDS ORDERED: *HR* Warfarin 5 MG TABLET PO ONE (18:00)
[2019-02-22 05:38] LABS: BUN/Creatinine Ratio 27 (6-26); Blood Urea Nitrogen 27 mg/dL (8-23); Carbon Dioxide 27 mEq/L (23-29); Chloride 101 mEq/L (98-107); Glucose 111 mg/dL (70-105); Hematocrit 39.2 % (35.3-44.9); Hemoglobin 12.6 g/dL (11.5-15.4); Mean Corpuscular HGB Conc 32.1 g/dL (31.6-35.5); Mean Corpuscular Hemoglobin 29.2 pg (28.0-33.3); Mean Corpuscular Volume 90.7 fL (83.0-100.0); Mean Platelet Volume 9.5 fL (9.4-12.4); Osmolality,Calculated 294 (280-300); Platelet Count 249 K/mcL (140-400); Potassium 3.8 mEq/L (3.5-5.1); Red Blood Count 4.32 M/mcL (3.82-4.97); Red Cell Distribution Width 14.6 % (11.5-14.5); Sodium 139 mEq/L (136-145); White Blood Count 7.5 K/mcL (4.3-11.1); eGFR For African Americans > 60 (> 60); eGFR For Non-African Americans 55 (> 60)
[2019-02-22 05:45] LABS: INR 1.2; Prothrombin Time 13.4 Seconds (9.4-12.1)
--- NOTE | 2019-02-22 10:28 | Internal Med Progress Note ---
Hospitalist Progress Note - Encounter Date of Encounter: 02/22/19 Time of Encounter: 08:25 - Subjective Interval History: Seen at bedside. Denies fever, chills, rigors. Denies shortness of breath. She was weaned off the oxygen yesterday during the daytime but required oxygen during the nighttime. Does not have any previous history of sleep apnea. Cu rrently saturating in the high 90s on 1 L of oxygen. Denies any blood in stools. No other overnight events. INR is still subtherapeutic. - Exam Vitals: Temp Pulse Resp BP Pulse Ox 97.6 F 67 18 98/66 96 02/22/19 07:06 02/22/19 07:06 02/22/19 07:06 02/22/19 07:06 02/22/19 07:06 Exam: GEN: Morbidly obese female NAD, A&O x 3, Pleasant and conversant, young male family friend at the bedside SKIN: [place] warm acyanotic not jaundice HEART: RRR, no murmurs LUNGS: CTA no wheeze or crackles, overall non labored ABDOMEN; Soft, non tender or distended, BS x 4 normactive EXT: No LE edema, Pedal pulses 1+, radial pulses 2+ PSYCH: Mood and affect is appropriate - Assessment and Plan (1) Bilateral pulmonary embolism Current Visit: Yes Status: Acute Assessment and Plan: Recurrent bilateral pulmonary embolism, previous episode was 3 years back. Etiology is unclear. Hypercoagulability workup has been ordered. Also has a concerning mass in the breast on the CT scan. At this point, the plan is for lifelong anticoagulation. Currently on a heparin drip, is being switched to Coumadin with INR subtherapeutic at 1.2. Continuing heparin drip and Coumadin. Coumadin dosing as per pharmacy. (2) DVT of lower extremity, bilateral Current Visit: Yes Status: Acute Assessment and Plan: Bilateral lower extremity venous duplex appears to be positive for acute DVT in the right distal SFV and PTV, left distal SFV, popliteal and PTV. Positive for acute SVT in the right LSV. Management with anticoagulation. (3) Breast mass, right Current Visit: Yes Status: Acute Assessment and Plan: Patient is to get diagnostic mammogram at the start of March. Patient is strongly encouraged to follow up. Consideirng PE, concerns fir the breast CA. (4) DDD (degenerative disc disease), cervical Current Visit: Yes Status: Acute Assessment and Plan: chronic with left upper extremity paresthesia per patient. She is on Celebrex she was told she cannot have Celebrex anymore given her anticoagulation therapy with increaed risk of bleeding. (5) DVT prophylaxis Current Visit: Yes Status: Acute Assessment and Plan: Patient on heparin drip for PE/DVT (6) Hypertension Current Visit: Yes Status: Acute Assessment and Plan: BP on lower side, also had IVELISSE yesterday. Will hold antihypertnesive meds Blood pressure continues to be low even off the antihypertensives. Continue to monitor. (7) Morbid obesity with BMI of 45.0-49.9, adult Current Visit: Yes Status: Chronic Assessment and Plan: Encourage lifestyle changes diet and exercise (8) Elevated serum creatinine Current Visit: Yes Status: Acute Assessment and Plan: Cr increased to 1.36 from baseline of 1.0-1.1 yesterday, today came back to 0.99. Continue to hold off the blood pressure medications. No other intervention at this point. (9) UTI (urinary tract infection) Current Visit: Yes Status: Acute Assessment and Plan: Urine cultures positive for Escherichia coli. On Augmentin for total of 5 days.. - Summary of Assessment and Plan Summary of Assessment and Plan: PT/OT consult consdiering the BMAT of 3 Will need 6 minue walk test prior to discharge - Time Spent with Patient Total time spent is greater than 50% in coordination of care (as documented) at patient's floor/unit and/or counseling patient: Internal Medicine: Result - Labs CBC & Chem 7: 02/22/19 04:09 02/22/19 04:09 Labs: Short CBC 02/22/19 Range/Units 04:09 WBC 7.5 (4.3-11.1) K/mcL Hgb 12.6 (11.5-15.4) g/dL Hct 39.2 (35.3-44.9) % Plt Count 249 (140-400) K/mcL BMP 02/22/19 04:09 Sodium 139 Potassium 3.8 Chloride 101 Carbon Dioxide 27 BUN 27 H Creatinine 0.99 Glucose 111 H Calcium 9.0 - ABG Interpretation ABG results: PT/INR, D-dimer PT 13.4 Seconds (9.4-12.1) H 02/22/19 04:09 Consult Discharge Plan - Plan Referrals: Kaitlynn Piña DO [Primary Care Provider] - (2) DVT of lower extremity, bilateral Qualifiers: Affected thrombotic vein of extremity: femoral Chronicity: acute Qualified Code(s): I82.413 - Acute embolism and thrombosis of femoral vein, bilateral (6) Hypertension Qualifiers: Hypertension type: essential hypertension Qualified Code(s): I10 - Essential (primary) hypertension (9) UTI (urinary tract infection) Qualifiers: Urinary tract infection type: site unspecified Hematuria presence: without hematuria Qualified Code(s): N39.0 - Urinary tract infection, site not specified
[2019-02-22] MEDS: Nystatin POWDER 30 GM BOTTLE TP SCH ×3 (11:51→20:58)
[2019-02-22] MEDS: Heparin 25,000 UNIT/250 ML D5W 25,000 UNIT/250 ML IV.SOLN IVC SCH (15:32)
[2019-02-22] MEDS ORDERED: *HR* Warfarin 7.5 MG TABLET PO ONE (18:00)
[2019-02-23 05:07] LABS: INR 1.2; Prothrombin Time 13.8 Seconds (9.4-12.1)
[2019-02-23] MEDS: Nystatin POWDER 30 GM BOTTLE TP SCH ×3 (09:31→21:06)
[2019-02-23 10:56] LABS: FACV Specimen WHOLE BLOOD
--- NOTE | 2019-02-23 12:13 | Internal Med Progress Note ---
Hospitalist Progress Note - Encounter Date of Encounter: 02/23/19 Time of Encounter: 10:00 - Subjective Interval History: Seen at bedside. Denies fever, chills, rigors. Denies shortness of breath. Again required the oxygen overnigth, otherwise oxygen saturations in 90s on 1L. Denies any blood in stools. No other overnight events. INR is still subt herapeutic. - Exam Vitals: Temp Pulse Resp BP Pulse Ox 98.4 F 71 18 133/68 95 02/23/19 07:05 02/23/19 07:05 02/23/19 07:05 02/23/19 07:05 02/23/19 07:05 Exam: GEN: Morbidly obese female NAD, A&O x 3, Pleasant and conversant, young male family friend at the bedside SKIN: [place] warm acyanotic not jaundice HEART: RRR, no murmurs LUNGS: CTA no wheeze or crackles, overall non labored ABDOMEN; Soft, non tender or distended, BS x 4 normactive EXT: No LE edema, Pedal pulses 1+, radial pulses 2+ PSYCH: Mood and affect is appropriate - Assessment and Plan (1) Bilateral pulmonary embolism Current Visit: Yes Status: Acute Assessment and Plan: Recurrent bilateral pulmonary embolism, previous episode was 3 years back. Etiology is unclear. Hypercoagulability workup has been ordered. Also has a concerning mass in the breast on the CT scan. At this point, the plan is for lifelong anticoagulation. Currently on a heparin drip, is being switched to Coumadin with INR sub therapeutic at 1.2. Continuing heparin drip and Coumadin. Coumadin dosing as per pharmacy. (2) DVT of lower extremity, bilateral Current Visit: Yes Status: Acute Assessment and Plan: Bilateral lower extremity venous duplex appears to be positive for acute DVT in the right distal SFV and PTV, left distal SFV, popliteal and PTV. Positive for acute SVT in the right LSV. Management with anticoagulation. (3) Breast mass, right Current Visit: Yes Status: Acute Assessment and Plan: Patient is to get diagnostic mammogram at the start of March. Patient is strongly encouraged to follow up. Consideirng PE, concerns fir the breast CA. (4) DDD (degenerative disc disease), cervical Current Visit: Yes Status: Acute Assessment and Plan: chronic with left upper extremity paresthesia per patient. She is on Celebrex she was told she cannot have Celebrex anymore given her anticoagulation therapy with increaed risk of bleeding. (5) DVT prophylaxis Current Visit: Yes Status: Acute Assessment and Plan: Patient on heparin drip for PE/DVT (6) Hypertension Current Visit: Yes Status: Acute Assessment and Plan: BP on lower side Will hold antihypertnesive meds Continue to monitor. (7) Morbid obesity with BMI of 45.0-49.9, adult Current Visit: Yes Status: Chronic Assessment and Plan: Encourage lifestyle changes diet and exercise (8) UTI (urinary tract infection) Current Visit: Yes Status: Acute Assessment and Plan: Urine cultures positive for Escherichia coli. On Augmentin for total of 5 days.. (9) Nocturnal oxygen desaturation Current Visit: Yes Status: Acute Assessment and Plan: Desaturations noted during the night time nad pt was put back on oxygen, Likely obesity hypovnetilation or sleep apnea Will need CPAP studies outpatient. 6 miunte walk test ordered - Summary of Assessment and Plan Summary of Assessment and Plan: Dc once INR above 2 - Time Spent with Patient Total time spent is greater than 50% in coordination of care (as documented) at patient's floor/unit and/or counseling patient: Internal Medicine: Result - Labs CBC & Chem 7: 02/22/19 04:09 02/22/19 04:09 - ABG Interpretation ABG results: PT/INR, D-dimer PT 13.8 Seconds (9.4-12.1) H 02/23/19 04:36 Consult Discharge Plan - Plan Referrals: Kaitlynn Piña DO [Primary Care Provider] - (2) DVT of lower extremity, bilateral Qualifiers: Affected thrombotic vein of extremity: femoral Chronicity: acute Qualified Code(s): I82.413 - Acute embolism and thrombosis of femoral vein, bilateral (6) Hypertension Qualifiers: Hypertension type: essential hypertension Qualified Code(s): I10 - Essential (primary) hypertension (8) UTI (urinary tract infection) Qualifiers: Urinary tract infection type: site unspecified Hematuria presence: without hematuria Qualified Code(s): N39.0 - Urinary tract infection, site not specified
[2019-02-23] MEDS: Heparin 25,000 UNIT/250 ML D5W 25,000 UNIT/250 ML IV.SOLN IVC SCH (13:46)
[2019-02-23 15:02] LABS: Fac V Leiden R506Q Mut Result NEGATIVE
[2019-02-23] MEDS ORDERED: *HR* Warfarin 7.5 MG TABLET PO ONE (18:00)
[2019-02-24 03:48] LABS: INR 1.3
[2019-02-24] MEDS: Heparin 25,000 UNIT/250 ML D5W 25,000 UNIT/250 ML IV.SOLN IVC SCH (11:02)
--- NOTE | 2019-02-24 11:04 | Internal Med Progress Note ---
Hospitalist Progress Note - Encounter Date of Encounter: 02/24/19 Time of Encounter: 08:15 - Subjective Interval History: Seen at bedside. Denies SOB currently at rest, neeeded oxygen overnight. Saturations in 90s on RA at rest. Denies fever, chills, crigors, denies blood in stools. INR subtherapeutic at 1.3. - Exam Vitals: Temp Pulse Resp BP Pulse Ox 98 F 64 16 136/66 95 02/24/19 10:55 02/24/19 10:55 02/24/19 10:55 02/24/19 10:55 02/24/19 10:55 Exam: GEN: Morbidly obese female NAD, A&O x 3, Pleasant and conversant, young male family friend at the bedside SKIN: [place] warm acyanotic not jaundice HEART: RRR, no murmurs LUNGS: CTA no wheeze or crackles, overall non labored ABDOMEN; Soft, non tender or distended, BS x 4 normactive EXT: No LE edema, Pedal pulses 1+, radial pulses 2+ PSYCH: Mood and affect is appropriate - Assessment and Plan (1) Acute respiratory failure with hypoxia Current Visit: Yes Status: Acute Assessment and Plan: Oxygen saturations less than 88% with activity as demonstarted yesterday with 6 minute walk test Matthew require oxygen with activity, as well as at night time due to nocturnal de saturations. 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 Etiology is unclear. Hypercoagulability workup has been ordered. Also has a concerning mass in the breast on the CT scan. At this point, the plan is for lifelong anticoagulation. Currently on a heparin drip, is being switched to Coumadin with INR subtherapeutic at 1.3. Continuing heparin drip and Coumadin. Coumadin dosing as per pharmacy. (3) DVT of lower extremity, bilateral Current Visit: Yes Status: Acute Assessment and Plan: Bilateral lower extremity venous duplex appears to be positive for acute DVT in the right distal SFV and PTV, left distal SFV, popliteal and PTV. Positive for acute SVT in the right LSV. Management with anticoagulation. (4) Breast mass, right Current Visit: Yes Status: Acute Assessment and Plan: Patient is to get diagnostic mammogram at the start of March. Consideirng PE, concerns fir the breast CA. (5) DDD (degenerative disc disease), cervical Current Visit: Yes Status: Acute Assessment and Plan: chronic with left upper extremity paresthesia per patient. She is on Celebrex she was told she cannot have Celebrex anymore given her anticoagulation therapy with increaed risk of bleeding. (6) DVT prophylaxis Current Visit: Yes Status: Acute Assessment and Plan: Patient on heparin drip for PE/DVT (7) Hypertension Current Visit: Yes Status: Acute Assessment and Plan: BP improving, optimal Will hold antihypertnesive meds currently Might need to restart with dose adjustments on discharge, Continue to monitor. (8) Morbid obesity with BMI of 45.0-49.9, adult Current Visit: Yes Status: Chronic Assessment and Plan: Encourage lifestyle changes diet and exercise (9) UTI (urinary tract infection) Current Visit: Yes Status: Acute Assessment and Plan: Urine cultures positive for Escherichia coli. Completed 5 day course of antibiotics (10) Nocturnal oxygen desaturation Current Visit: Yes Status: Acute Assessment and Plan: Likely due to obesity hypovnetilation or sleep apnea Will need CPAP studies outpatient. - Time Spent with Patient Total time spent is greater than 50% in coordination of care (as documented) at patient's floor/unit and/or counseling patient: Internal Medicine: Result - Labs CBC & Chem 7: 02/22/19 04:09 02/22/19 04:09 - ABG Interpretation ABG results: PT/INR, D-dimer PT 15.0 Seconds (9.4-12.1) H 02/24/19 03:26 Consult Discharge Plan - Plan Referrals: Kaitlynn Piña DO [Primary Care Provider] - (3) DVT of lower extremity, bilateral Qualifiers: Affected thrombotic vein of extremity: femoral Chronicity: acute Qualified Code(s): I82.413 - Acute embolism and thrombosis of femoral vein, bilateral (7) Hypertension Qualifiers: Hypertension type: essential hypertension Qualified Code(s): I10 - Essential (primary) hypertension (9) UTI (urinary tract infection) Qualifiers: Urinary tract infection type: site unspecified Hematuria presence: without hematuria Qualified Code(s): N39.0 - Urinary tract infection, site not specified
[2019-02-24] MEDS: Nystatin POWDER 30 GM BOTTLE TP SCH ×3 (13:00→21:24)
[2019-02-24] MEDS ORDERED: *HR* Warfarin 7.5 MG TABLET PO ONE (18:00)
[2019-02-25 06:28] LABS: INR 1.3; Prothrombin Time 14.6 Seconds (9.4-12.1)
[2019-02-25] MEDS: Heparin 25,000 UNIT/250 ML D5W 25,000 UNIT/250 ML IV.SOLN IVC SCH (08:17)
[2019-02-25] MEDS: Nystatin POWDER 30 GM BOTTLE TP SCH ×3 (12:04→21:57)
--- NOTE | 2019-02-25 13:29 | Internal Med Progress Note ---
Hospitalist Progress Note - Encounter Date of Encounter: 02/25/19 Time of Encounter: 10:15 - Subjective Interval History: Patient seen at bedside. Denies chest pain, shortness of breath, palpitations. Denies fever, chills, rigors. No acute event overnight. INR continues to be 1.3 - Exam Vitals: Temp Pulse Resp BP Pulse Ox 98.6 F 36 16 133/85 96 02/25/19 10:59 02/25/19 10:59 02/25/19 10:59 02/25/19 10:59 02/25/19 10:59 Exam: GEN: Morbidly obese female NAD, A&O x 3, Pleasant and conversant, young male family friend at the bedside SKIN: [place] warm acyanotic not jaundice HEART: RRR, no murmurs LUNGS: CTA no wheeze or crackles, overall non labored ABDOMEN; Soft, non tender or distended, BS x 4 normactive EXT: No LE edema, Pedal pulses 1+, radial pulses 2+ PSYCH: Mood and affect is appropriate - Assessment and Plan (1) Acute respiratory failure with hypoxia Current Visit: Yes Status: Acute Assessment and Plan: Oxygen saturations less than 88% with activity as demonstarted yesterday with 6 minute walk test Matthew require oxygen with activity, as well as at night time due to nocturnal desaturations. 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 Etiology is unclear. Hypercoagulability workup has been ordered. Also has a concerning mass in the breast on the CT scan. At this point, the plan is for lifelong anticoagulation. Currently on a heparin drip, is being switched to Coumadin with INR subtherapeutic at 1.3. Continuing heparin drip and Coumadin. Coumadin dosing as per pharmacy. (3) DVT of lower extremity, bilateral Current Visit: Yes Status: Acute (4) Breast mass, right Current Visit: Yes Status: Acute Assessment and Plan: Patient is to get diagnostic mammogram at the start of March. Consideirng PE, concerns fir the breast CA. (5) DDD (degenerative disc disease), cervical Current Visit: Yes Status: Acute Assessment and Plan: chronic with left upper extremity paresthesia per patient. She is on Celebrex she was told she cannot have Celebrex anymore given her anticoagulation therapy with increaed risk of bleeding. (6) DVT prophylaxis Current Visit: Yes Status: Acute Assessment and Plan: Patient on heparin drip for PE/DVT (7) Hypertension Current Visit: Yes Status: Acute Assessment and Plan: BP improving, optimal Will hold antihypertnesive meds currently Might need to restart with dose adjustments on discharge, Continue to monitor. (8) Morbid obesity with BMI of 45.0-49.9, adult Current Visit: Yes Status: Chronic Assessment and Plan: Encourage lifestyle changes diet and exercise (9) Nocturnal oxygen desaturation Current Visit: Yes Status: Acute Assessment and Plan: Likely due to obesity hypovnetilation or sleep apnea Will need CPAP studies outpatient. - Time Spent with Patient Total time spent is greater than 50% in coordination of care (as documented) at patient's floor/unit and/or counseling patient: Internal Medicine: Result - Labs CBC & Chem 7: 02/22/19 04:09 02/22/19 04:09 - ABG Interpretation ABG results: PT/INR, D-dimer PT 14.6 Seconds (9.4-12.1) H 02/25/19 05:12 Consult Discharge Plan - Plan Referrals: Kaitlynn Piña DO [Primary Care Provider] - (3) DVT of lower extremity, bilateral Qualifiers: Affected thrombotic vein of extremity: femoral Chronicity: acute Qualified Code(s): I82.413 - Acute embolism and thrombosis of femoral vein, bilateral (7) Hypertension Qualifiers: Hypertension type: essential hypertension Qualified Code(s): I10 - Essential (primary) hypertension
[2019-02-25] MEDS ORDERED: *HR* Warfarin 7.5 MG TABLET PO ONE (18:00)
[2019-02-26 00:38] LABS: Heparin anti-factor XA UFH 0.3 IU/mL (0.30-0.70)
[2019-02-26 01:11] LABS: INR 1.3; Prothrombin Time 15.2 Seconds (9.4-12.1)
[2019-02-26] MEDS: Heparin 25,000 UNIT/250 ML D5W 25,000 UNIT/250 ML IV.SOLN IVC SCH ×2 (01:12→22:25)
[2019-02-26] MEDS: Nystatin POWDER 30 GM BOTTLE TP SCH ×3 (09:43→22:27)
--- NOTE | 2019-02-26 11:55 | Internal Med Progress Note ---
Hospitalist Progress Note - Encounter Date of Encounter: 02/26/19 Time of Encounter: 10:55 - Subjective Interval History: Patient was seen at bedside. INR is still 1.3. Discussed with the patient the possibility of being discharged to home on Lovenox, continue Coumadin and get a PT/INR checked on an almost daily basis until INR is therapeutic. Patient is agreeable to the plan and the idea to get this done. Denies fever, chills, rigors. Denies chest pain or shortness of breath. - Exam Vitals: Temp Pulse Resp BP Pulse Ox 98.0 F 62 20 132/66 93 02/26/19 11:24 02/26/19 11:24 02/26/19 11:24 02/26/19 07:56 02/26/19 11:24 Exam: GEN: Morbidly obese female NAD, A&O x 3, Pleasant and conversant, young male family friend at the bedside SKIN: [place] warm acyanotic not jaundice HEART: RRR, no murmurs LUNGS: CTA no wheeze or crackles, overall non labored ABDOMEN; Soft, non tender or distended, BS x 4 normactive EXT: No LE edema, Pedal pulses 1+, radial pulses 2+ PSYCH: Mood and affect is appropriate - Assessment and Plan (1) Acute respiratory failure with hypoxia Current Visit: Yes Status: Acute Assessment and Plan: Oxygen saturations less than 88% with activity as demonstarted yesterday with 6 minute walk test Matthew require oxygen with activity, as well as at night time due to nocturnal desaturations. 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 Etiology is unclear. Hypercoagulability workup has been ordered. Also has a concerning mass in the breast on the CT scan. At this point, the plan is for lifelong anticoagulation. Currently on a heparin drip, is being switched to Coumadin with INR subtherapeutic at 1.3. Obtain the labs today. Switch the patient on Lovenox. Discussed with the pharmacist, patient will be given increased dose of 10 mg today. Discussed with the telephonic nurse case manager, arrangements will be made for the patient to get the lab work done daily until the INR becomes therapeutic. She will be sent home on Coumadin and Lovenox until her INR becomes therapeutic. We will make the decision regarding the dose of Coumadin after discussion with the pharmacy tomorrow. (3) DVT of lower extremity, bilateral Current Visit: Yes Status: Acute Assessment and Plan: Bilateral lower extremity venous duplex appears to be positive for acute DVT in the right distal SFV and PTV, left distal SFV, popliteal and PTV. Positive for acute SVT in the right LSV. Management with anticoagulation. (4) Breast mass, right Current Visit: Yes Status: Acute Assessment and Plan: Patient is to get diagnostic mammogram at the start of March. Consideirng PE, concerns fir the breast CA. (5) DDD (degenerative disc disease), cervical Current Visit: Yes Status: Acute Assessment and Plan: chronic with left upper extremity paresthesia per patient. She is on Celebrex she was told she cannot have Celebrex anymore given her anticoagulation therapy with increaed risk of bleeding. (6) DVT prophylaxis Current Visit: Yes Status: Acute Assessment and Plan: Patient on heparin drip for PE/DVT (7) Hypertension Current Visit: Yes Status: Acute Assessment and Plan: BP improving, optimal Restart on home meds (8) Morbid obesity with BMI of 45.0-49.9, adult Current Visit: Yes Status: Chronic Assessment and Plan: Encourage lifestyle changes diet and exercise (9) Nocturnal oxygen desaturation Current Visit: Yes Status: Acute Assessment and Plan: Likely due to obesity hypovnetilation or sleep apnea Will need CPAP studies outpatient. - Time Spent with Patient Total time spent is greater than 50% in coordination of care (as documented) at patient's floor/unit and/or counseling patient: Internal Medicine: Result - Labs CBC & Chem 7: 02/22/19 04:09 02/22/19 04:09 - ABG Interpretation ABG results: PT/INR, D-dimer PT 15.2 Seconds (9.4-12.1) H 02/25/19 23:51 Consult Discharge Plan - Plan Referrals: Kaitlynn Piña DO [Primary Care Provider] - Prescriptions: Enoxaparin [Lovenox] 130 mg SQ Q12HR 10 Days #20 syr Prescription Printed (3) DVT of lower extremity, bilateral Qualifiers: Affected thrombotic vein of extremity: femoral Chronicity: acute Qualified Code(s): I82.413 - Acute embolism and thrombosis of femoral vein, bilateral (7) Hypertension Qualifiers: Hypertension type: essential hypertension Qualified Code(s): I10 - Essential (primary) hypertension
[2019-02-26 13:04] LABS: INR 1.4
[2019-02-26 13:11] LABS: Calcium 9.6 mg/dL (8.6-10.3); Potassium 4.1 mEq/L (3.5-5.1)
[2019-02-26] MEDS ORDERED: *HR* Warfarin 10 MG TABLET PO ONE (18:00)
[2019-02-26] MEDS: *HR* Enoxaparin 30 MG/0.3 ML SYRINGE SQ SCH (19:31)
[2019-02-27] MEDS: *HR* Enoxaparin 30 MG/0.3 ML SYRINGE SQ SCH (06:06)
[2019-02-27 06:49] VITALS: BP 105/56
[2019-02-27 06:53] LABS: INR 1.6
[2019-02-27] MEDS: Nystatin POWDER 30 GM BOTTLE TP SCH (08:05)
--- NOTE | 2019-02-27 08:48 | Discharge Summary ---
- NOTES TO OUTPATIENT PROVIDER Notes to Outpatient Provider: Presneted with the SOB, found PE, dsicharged on coumadin. INR still 1.6. Is being discharged on lovenox for transition to coumadin, will need daily INRs until therapeutic, and follow up with the coumadin clinic. Orders not resulted at time of discharge: Pending orders 02/18/19 15:50 Antiphospholipid Ab High Spec Stat Date of Encounter: 02/27/19 Time of Encounter: 08:30 - Discharge Diagnosis (1) Acute respiratory failure with hypoxia Priority: Secondary Status: Acute (2) Bilateral pulmonary embolism Priority: Primary Status: Acute (3) DVT of lower extremity, bilateral Priority: Secondary Status: Acute Qualifiers: Affected thrombotic vein of extremity: femoral Chronicity: acute Qualified Code(s): I82.413 - Acute embolism and thrombosis of femoral vein, bilateral (4) Breast mass, right Priority: Secondary Status: Acute (5) DDD (degenerative disc disease), cervical Priority: Secondary Status: Acute (6) DVT prophylaxis Priority: Secondary Status: Acute (7) Hypertension Priority: Secondary Status: Acute Qualifiers: Hypertension type: essential hypertension Qualified Code(s): I10 - Essential (primary) hypertension (8) Morbid obesity with BMI of 45.0-49.9, adult Priority: Secondary Status: Chronic (9) Nocturnal oxygen desaturation Priority: Secondary Status: Acute Hospital course: Ms. Gutiérrez is a 78 year old female with a past medical history significant for hypertension, remote history of pulmonary embolism, presented to the hospital because of shortness of breath. CT scan angiogram just showed bilateral pulmonary embolism. Patient was admitted, started on heparin drip, being transitioned to Coumadin. Patient INR is still 1.6 after 8 doses of Coumadin. Patient will be sent home on Lovenox 130 milligrams twice a day until her INR becomes therapeutic. She will be getting the lab as an outpatient on daily basis, and PCP will be following up on INR. We will discuss with her PCP before she goes home. Once her INR becomes therapeutic, she will have to stop the Lovenox and continue Coumadin. Discussed with the pharmacy regarding the dose, she will be sent on 8 mg daily. Patient will also follow-up with the outpatient Coumadin clinic. Patient's blood pressure was also low why she was in the hospital. She was currently on lisinopril and had hydrochlorothiazide combination. Discussed with the patient to be on lisinopril 10 mg daily. Patient is agreeable with the plan. She also had a mammogram done which was concerning for breast mass. She will get the diagnostic mammography and follow-up with oncologist as an outpatient. Applilia confimed Patient is being discharged in stable condition. - Time Spent with Patient Total time spent providing and/or coordinating discharge services: - Discharge Medications Prescriptions: New Enoxaparin [Lovenox] 130 mg SQ Q12HR 10 Days #20 syr Lisinopril [Zestril] 10 mg PO DAILY #30 tablet Warfarin [Coumadin] 8 mg PO 1800 #60 tablet Discontinued Celecoxib [Celebrex] 200 mg PO DAILY Lisinopril/Hydrochlorothiazide [Lisinopril-Hctz 10-12.5 mg Tab] 1 each PO DAILY Home Medications: Enoxaparin [Lovenox] 130 mg SQ Q12HR 10 Days #20 syr 02/26/19 [Rx] Lisinopril [Zestril] 10 mg PO DAILY #30 tablet 02/27/19 [Rx] Warfarin [Coumadin] 8 mg PO 1800 #60 tablet 02/27/19 [Rx] Allergies/Adverse Reactions: Allergy/AdvReac Type Severity Reaction Status Date / Time naproxen [From Naprosyn] Allergy Rash Verified 01/02/16 14:46 Date of admission: 02/19/19 15:54 Primary care physician: Kaitlynn Piña DO Consults: 02/18/19 16:04 Consult to Interventional Radiology [CONS] Stat Consulting Provider: Radiology Interventional Cols Reason for Consult: retroareolar breast mass, breast mass and prominent right axillary lymph node noted on exam, US guided breast or right axillary lymph mass Call Completed: No 02/20/19 08:22 Consult to Vascular Surgery [CONS] Routine Consulting Provider: Vascular Surgery Cassie Reason for Consult: bilateral PE, and bilat DVT Time Notified: 08:23 Call Completed: Yes - Constitutional Vitals: Temp Pulse Resp BP Pulse Ox 98 F 63 16 105/56 98 02/27/19 06:47 02/27/19 06:47 02/27/19 06:47 02/27/19 06:47 02/27/19 06:47 Exam: GEN: Morbidly obese female NAD, A&O x 3, Pleasant and conversant, young male family friend at the bedside SKIN: [place] warm acyanotic not jaundice HEART: RRR, no murmurs LUNGS: CTA no wheeze or crackles, overall non labored ABDOMEN; Soft, non tender or distended, BS x 4 normactive EXT: No LE edema, Pedal pulses 1+, radial pulses 2+ PSYCH: Mood and affect is appropriate - Patient Status Disposition: Home, Self-Care Condition: Good Overall status at discharge: patient is progressing back to baseline - Discharge Instructions Instructions: Enoxaparin (Injection), Pulmonary Embolism (DC), Acute Respiratory Distress Syndrome (DC), Urinary Tract Infection in Women (DC), Peripheral Vascular Disorders (DC), Chronic Hypertension (DC) Follow Up With: Kaitlynn Piña DO [Primary Care Provider] - 03/05/19 11:20 am Taisha Tavera MD [Partnered Physician] - 03/07/19 1:45 pm - Diet and Activity Activity: increase activity as tolerated Diet: advance to your usual diet
[2019-02-27] MEDS ORDERED: *HR* Warfarin 4 MG TABLET PO ONE (18:00)
[2019-03-07 09:34] LABS: Antiphospholipid IgG High Spec 9 GPL (0-14); Antiphospholipid IgM High Spec 2 MPL (0-14)
== END 2019-02-27 12:39 | disposition home or self-care (01) | DRG 175 ==
LOC: SUATTDRO → EMEROOARM 10:41 → 2NENU 10:41 → SUATTDRO 15:52 → 2NENU 17:37 → SUATTDRO 02-19 15:54
PROVIDERS: ADMIT Pharmacist; ATTEND Internal Medicine

== ENCOUNTER 2019-04-11 05:25 | Observation (INO) ==
[2019-04-11] MEDS ORDERED: CeFAZolin Syr 3,000MG/30 ML 3,000 MG/30 ML SYRINGE IVPB ONE (05:49)
[2019-04-11] MEDS ORDERED: Ringers Solution, Lactated 1,000 ML IVC SCH (06:00)
[2019-04-11] MEDS ORDERED: *HR* FentaNYL (PF) 100 MCG/2 ML VIAL ONE (07:41)
[2019-04-11] MEDS ORDERED: *HR* Midazolam HCl 2 MG/2 ML VIAL ONE (07:41)
[2019-04-11] MEDS ORDERED: *HR* Propofol 200 MG/20 ML VIAL IVP ONE (07:41)
[2019-04-11] MEDS ORDERED: Lidocaine -MPF 2% 2 ML VIAL ONE (07:42)
[2019-04-11] MEDS ORDERED: *HR* Rocuronium Bromide 50 MG/5 ML VIAL ONE (07:42)
[2019-04-11] MEDS ORDERED: Propofol 500 MG/50 ML INFUS..BTL ONE ×3 (07:45→09:37)
[2019-04-11] MEDS ORDERED: Lidocaine HCL 4 ML Topical Solution (Laryng-O-Jet Kit Sterile Pak) TP ONE (07:49)
[2019-04-11] MEDS ORDERED: traMADol 50 MG TABLET PO ONE (07:53)
[2019-04-11] MEDS ORDERED: Gabapentin 300 MG CAPSULE PO ONE (07:53)
[2019-04-11] MEDS ORDERED: *HR* Remifentanil 1 MG VIAL IVP ONE ×2 (07:57→09:31)
[2019-04-11] MEDS ORDERED: Lidocaine -MPF 1% 2 ML AMPUL ONE (08:04)
[2019-04-11] MEDS ORDERED: EPHEDrine 50 MG/ML VIAL ONE (08:34)
[2019-04-11] MEDS ORDERED: Ondansetron 4 MG/2 ML VIAL ONE (08:58)
[2019-04-11] MEDS ORDERED: Dexamethasone 4 MG/ML VIAL ONE (08:58)
[2019-04-11] MEDS ORDERED: Neostigmine Methylsulfate 3 MG/3 ML SYRINGE ONE (08:58)
[2019-04-11] MEDS ORDERED: Acetaminophen IV 1,000 MG/100 ML INFUS..BTL ONE (08:59)
[2019-04-11] MEDS ORDERED: *HR* OxyCODONE Immed Rel 5 MG TABLET PO ONE (10:15)
[2019-04-11] MEDS: *HR* HYDROmorphone (PF) 1 MG/ML SYRINGE IVP PRN ×4 (10:20→13:32)
[2019-04-11] MEDS ORDERED: *HR* Metoprolol 5 MG/5 ML VIAL IVP PRN (13:56)
[2019-04-11] MEDS ORDERED: Ondansetron 4 MG/2 ML VIAL IVP PRN (13:56)
[2019-04-11] MEDS: ceFAZolin 3,000 MG in 0.9 % Sodium Chloride 100 ML IVPB SCH (15:26)
[2019-04-11] MEDS: *HR* HYDROcodone/Acet 5/325 mg TABLET PO PRN (19:49)
[2019-04-12] MEDS: ceFAZolin 3,000 MG in 0.9 % Sodium Chloride 100 ML IVPB SCH (00:02)
[2019-04-12] MEDS: *HR* HYDROcodone/Acet 5/325 mg TABLET PO PRN ×2 (05:31→21:43)
[2019-04-12] MEDS: Apixaban 5 MG TABLET PO SCH ×2 (09:04→21:42)
[2019-04-13 06:57] VITALS: BP 106/67
[2019-04-13] MEDS: Apixaban 5 MG TABLET PO SCH (09:07)
[2019-04-13] MEDS: *HR* HYDROcodone/Acet 5/325 mg TABLET PO PRN (11:03)
== END 2019-04-13 11:45 | disposition home or self-care (01) ==
LOC: SAMDAY 05:25 → 3ANU 05:25
PROVIDERS: ADMIT Surgery; ATTEND Surgery